=== PATIENT | male | born 1945 | race Caucasian/White ===

== ENCOUNTER → 2017-09-16 | Outpatient (CLI) | payer OTHER ==
[~2017-09-16] MED LIST: ALBU17I INH; ASPI81TA82 PO; CAPT100T PO; DILT180C56 OR; DOCU100T9 PO; FOLI1TAB PO; GLUCTAB OR; LORT5TAB PO; NAPR550 PO; ROBISYP PO; SIMV5TAB3 OR; VITATAB25 OR; WAL-10TA2 PO; ZITHTAB6 PO
--- NOTE | 2017-09-21 12:47 | RSPPFT ---
DATE OF PROCEDURE: 09/16/17 COMMENTS: Spirometry shows FVC of 1.4 at 48% of predicted, FEV1 of 0.5 at 24%, FEV1/FVC ratio is decreased. Flow is decreased at FEF 25, FEF 50, FEF 75 and FEF 25-75. There is no response after bronchodilator treatment. Lung volumes show residual volume is increased. TLC is normal. Diffusion capacity is decreased. Room air arterial blood gases show pH of 7.43, PCO2 of 47, PO2 of 53, BiCarb of 32 and Saturation at 84%. IMPRESSION: 1. Severe obstructive lung disease. 2. No response after bronchodilator treatment. 3. Lung volumes show hyperinflation. 4. Diffusion capacity is decreased. 5. Blood gases show presence of hypoxia and compensated respiratory acidosis.
== END ==
LOC: PHRSP 08:13
PROVIDERS: ATTEND Specialist
DX: J44.9 Chronic obstructive pulmonary disease, unspecified (principal)
CPT/HCPCS: 36600; 82805; 94060; 94726; 94729